=== PATIENT | female | born 1960 | race Caucasian/White ===

== ENCOUNTER 2016-07-23 19:47 | Emergency (ER) | payer BC ==
[2016-07-23 21:55] LABS: HEMOGLOBIN 14.2 gm/dl (12.3-15.3); RED BLOOD COUNT 4.91 M/UL (4.00-5.10); WHITE BLOOD COUNT 6.2 K/UL (4.5-11.0)
== END 2016-07-23 22:05 | disposition home or self-care (01) ==
LOC: ER1 19:47
PROVIDERS: Physician Assistant Medical
DX: I80.8 Phlebitis and thrombophlebitis of other sites (principal); I10 Essential (primary) hypertension; E78.5 Hyperlipidemia, unspecified
CPT/HCPCS: 36415; 80053; 85025; 99283

== ENCOUNTER → 2016-07-24 | Outpatient (CLI) | payer BC | LOC: US 10:23 | DX: M79.621 Pain in right upper arm (principal); L53.9 Erythematous condition, unspecified; I82.611 Acute embolism and thrombosis of superficial veins of right upper extremity | CPT/HCPCS: 93971 ==

== ENCOUNTER → 2016-08-21 | Outpatient (CLI) | payer BC | LOC: MAMO 08-12 14:10 | DX: Z12.31 Encounter for screening mammogram for malignant neoplasm of breast (principal); Z80.3 Family history of malignant neoplasm of breast; Z90.710 Acquired absence of both cervix and uterus | CPT/HCPCS: G0202 ==

== ENCOUNTER → 2021-10-29 | Outpatient (CLI) | payer BC ==
[~2021-10-29] MED LIST: DELSYM30 MG/5 ML PO
== END ==
LOC: RAD 17:05
DX: M25.511 Pain in right shoulder (principal); M25.512 Pain in left shoulder
CPT/HCPCS: 71046

== ENCOUNTER → 2021-12-03 | Outpatient (CLI) | payer BC | LOC: EMI 16:13 | DX: M51.16 Intervertebral disc disorders with radiculopathy, lumbar region (principal); M48.061 Spinal stenosis, lumbar region without neurogenic claudication; M47.26 Other spondylosis with radiculopathy, lumbar region | CPT/HCPCS: 72148 ==